=== PATIENT | female | born 1995 | race Caucasian/White ===

== ENCOUNTER 2016-10-16 14:38 | Emergency (ER) | payer OTHER ==
[2016-10-16] MEDS ORDERED: NS 0.9% 1000 ML* 1,000 ML IV ONE (15:01)
--- NOTE | 2016-10-16 15:23 | ED ---
Dizziness - HPI Summary HPI Summary: Patient presents for evaluation of lightheadedness. Patient feels chronically dehydrated, woke up and went to class and by the time she got to the bottom of the hill and went into the building, felt lightheaded. She sat down and felt better, although with associated nausea. 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 Denies any recent medication changes, other than slight decrease to the cabergoline. Denies any volume loss, poor po intake. Also has a week of intermittent, cramping LLQ pelvic pain identical to previous ovarian cyst, but now worse. Denies UTI sx, bowel problems, flank pain. Came for evaluation. - History Of Current Complaint Chief Complaint: EDDizziness Stated Complaint: LIGHTHEADED/NAUSEA Time Seen by Provider: 10/16/16 14:47 Hx Obtained From: Patient, Family/Hvac Sales Engineer - Friend Severity Initially: Moderate Severity Currently: None Character: Lightheaded - Allergies/Home Medications Allergies/Adverse Reactions: Allergies Allergy/AdvReac Type Severity Reaction Status Date / Time No Known Allergies Allergy Verified 10/16/16 16:10 PMH/Surg Hx/FS Hx/Imm Hx Infectious Disease History: No Infectious Disease History: Denies: Traveled Outside the [place] in Last 30 Days - Social History Alcohol Use: Rare Substance Use Type: Reports: None Smoking Status (MU): Never Smoked Tobacco Review of Systems Negative: Fever, Chills All Other Systems Reviewed And Are Negative: Yes Physical Exam Triage Information Reviewed: Yes Vital Signs On Initial Exam: Initial Vitals Temp Pulse Resp BP Pulse Ox 98 F 71 18 118/79 99 10/16/16 14:56 10/16/16 14:56 10/16/16 14:56 10/16/16 14:56 10/16/16 14:56 Vital Signs Reviewed: Yes Appearance: Positive: Well-Appearing, No Pain Distress, Well-Nourished Skin: Positive: Warm, Skin Color Reflects Adequate Perfusion, Dry Head/Face: Positive: Normal Head/Face Inspection Eyes: Positive: Normal, EOMI, KEELY ENT: Positive: Normal ENT inspection, Hearing grossly normal, Pharynx normal Dental: Positive: Percussion Tenderness @ Neck: Positive: Supple, Nontender, No Lymphadenopathy Respiratory/Lung Sounds: Positive: Clear to Auscultation, Breath Sounds Present Cardiovascular: Positive: Normal, RRR, Pulses are Symmetrical in both Upper and Lower Extremities Abdomen Description: Positive: Nontender, No Organomegaly, Soft. Negative: CVA Tenderness (R), CVA Tenderness (L) Musculoskeletal: Positive: Normal, Strength/ROM Intact Neurological: Positive: Normal, Sensory/Motor Intact, Alert, Oriented to Person Place, Time, CN Intact II-III, Reflexes Intact, NV Bundle Intact Distally, Normal Gait. Negative: Babinski Bilateral, Cerebellar Dysfunction Diagnostics - Vital Signs Vital Signs Temp Pulse Resp BP Pulse Ox 10/16/16 14:56 98 F 71 18 118/79 99 - Laboratory Result Diagrams: 10/16/16 15:35 10/16/16 15:35 Lab Statement: Any lab studies that have been ordered have been reviewed, and results considered in the medical decision making process. Dizzy Course/Dx - Diagnoses Differential Diagnosis/HQI/PQRI: Other - CT to eval if she has mass effect, although less likely due to the more likely volume depletion. IVF to resuscitate. Ultrasound for ovarian cyst. UA/UPT. DC home expected. Provider Diagnoses: Near syncope Discharge - Discharge Plan Condition: Improved Disposition: HOME Patient Education Materials: Near Syncope (ED)
--- NOTE | 2016-10-16 15:42 | RAD ---
INDICATION: Headaches COMPARISON: None TECHNIQUE: Noncontrast axial source images were acquired from the skull base to the vertex. FINDINGS: Ventricles/sulci: The ventricles and cisterns are normal in size and configuration for age. Brain parenchyma: There is no focal parenchymal finding, evidence of intracranial mass, or intracranial mass effect. Intracranial hemorrhage:None. Extra-axial spaces: There are no abnormal extra axial fluid collections or evidence of extra-axial mass. Calvarium: There is no calvarial fracture or other calvarial abnormality. Scalp: There is no evidence of scalp or extracalvarial soft tissue abnormality. Paranasal sinuses/mastoid: The paranasal sinuses and mastoid air cells are clear. Other: None. IMPRESSION: NEGATIVE EXAMINATION
[2016-10-16 15:52] LABS: Hematocrit 42 % (35-47); Hemoglobin 14.3 g/dl (12.0-16.0); Mean Corpuscular HGB Conc 34 g/dl (31-36); Mean Corpuscular Hemoglobin 30 pg (27-31); Mean Corpuscular Volume 90 fL (80-97); Mean Platelet Volume 9 um3 (7.4-10.4); Red Blood Count 4.72 10^6/ul (4.0-5.4); Red Cell Distribution Width 13 % (10.5-15); White Blood Count 7.5 10^3/ul (3.5-10.8)
[2016-10-16 15:56] LABS: Urine Bilirubin Negative (Negative); Urine Glucose Negative (Negative); Urine Nitrite Negative (Negative)
[2016-10-16 16:10] LABS: BUN/Creatinine Ratio 17.3 (8-20); Calcium 10.4 mg/dL (8.6-10.3); EGFR African American 113.7 (>60); EGFR Non-African American 88.4 (>60); Potassium 3.8 mmol/L (3.5-5.0)
--- NOTE | 2016-10-16 16:10 | RAD ---
INDICATION: Left lower quadrant pain none COMPARISON: None TECHNIQUE: Longitudinal and transverse transvaginal scans of the pelvis were obtained. FINDINGS: Uterus: The uterus is normal in size. There are no focal masses. The uterus measures 6.5 x 5.5 x 4.3 cm. Endometrial thickness: The endometrial thickness is measured at 0.8 cm. . Free fluid: There is no significant free fluid . Ovaries: The ovaries are normal in size. The right ovary measures 3.8 x 1.9 x 3.8 cm. The left ovary measures 4.0 x 2.0 x 3.8 cm. There are multiple small follicles bilaterally. Doppler interrogation demonstrates flow to each ovary. Other: None IMPRESSION: NORMAL STUDY.
[2016-10-16 16:59] LABS: Manual Entry Verification ROB0080; UR Preg Internal Control QC Line Present
[2016-10-16 18:01] VITALS: BP 104/54
== END 2016-10-16 18:02 | disposition home or self-care (01) ==
LOC: ED 14:38
DX: R55 Syncope and collapse (principal)
CPT/HCPCS: 36415; 70450; 76830; 80048; 81003; 81025; 85027; 96360; 99282